=== PATIENT | male | born 1940 | race Caucasian/White ===

== ENCOUNTER 2022-10-19 12:29 | Outpatient (CLI) | payer OTHER | END 2022-10-19 23:59 | disposition home or self-care (01) | LOC: RAD 12:29 | PROVIDERS: ATTEND Chiropractor | DX: I08.3 Combined rheumatic disorders of mitral, aortic and tricuspid valves (principal); I25.9 Chronic ischemic heart disease, unspecified | CPT/HCPCS: 93306 ==